=== PATIENT | female | born 1980 | race Two or more races ===

== ENCOUNTER → 2024-05-24 | Outpatient (CLI) | payer MEDICAID, SELFPAY ==
--- NOTE | 2024-05-24 16:25 | XR_ITS ---
Examination: PA lateral chest 2 views TECHNIQUE: Upright PA lateral chest 2 views Exam date and time: May 24, 2024 1647 hours INDICATIONS: Back pain beginning 2 days ago. FINDINGS: Normal heart size No pneumonia or pulmonary edema Moderate osteopenia Mild diffuse thoracic degenerative disc disease IMPRESSION: Mild diffuse thoracic degenerative disc disease
== END | disposition home or self-care (01) ==
LOC: CDIM 16:12
PROVIDERS: PCP Physician Assistant Medical; Referring Provider Physician Assistant Medical; Visit Provider Physician Assistant Medical
DX: M51.34 Other intervertebral disc degeneration, thoracic region (principal)
CPT/HCPCS: 71046

== ENCOUNTER → 2024-07-28 | Outpatient (CLI) | payer MEDICAID, SELFPAY ==
--- NOTE | 2024-07-28 13:20 | XR_ITS ---
Examination: Bone densitometry Date and time of exam:July 28, 2024 1359 hours INDICATIONS: Premenopausal Technique: Lumbar spine and hip total bone mineralization values of an calculated. Peak reference and age match control results have been displayed. Findings: Lumbar spine total bone mineralization is1.237 gm/cm2. This is 1.7 standard deviations above peak reference. This is 1.5 standard deviations above age-matched controls. Hip total bone mineralization is 1.164 gm/cm2 This is 1.5 standard deviations above peak reference. This is 1.5 standard deviations above age-matched controls Impression: There is normal mineralization based on lumbar spine measurements. There is normal mineralization based on hip measurements
== END | disposition home or self-care (01) ==
PROVIDERS: PCP Physician Assistant; Referring Provider Internal Medicine; Visit Provider Internal Medicine
DX: M85.80 Other specified disorders of bone density and structure, unspecified site (principal)
CPT/HCPCS: 77080

== ENCOUNTER → 2025-05-23 | Outpatient (CLI) | payer MEDICAID, SELFPAY ==
--- NOTE | 2025-05-23 09:21 | XR_ITS ---
EXAMINATION: PA lateral chest 2 views TECHNIQUE: Upright PA lateral chest 2 views Date and time: May 23, 2025, 0934 hours, comparison May 24, 2024 INDICATION: Chest pain 6 months. FINDINGS: Normal heart size No pneumonia or pulmonary edema Mild osteopenia IMPRESSION: No pneumonia or pulmonary edema
== END | disposition home or self-care (01) ==
LOC: CDIM 09:08
PROVIDERS: PCP Nurse Practitioner Family; Referring Provider Nurse Practitioner Family; Visit Provider Nurse Practitioner Family
DX: R07.9 Chest pain, unspecified (principal)
CPT/HCPCS: 71046